=== PATIENT | female | born 1975 | race Caucasian/White ===

== ENCOUNTER 2019-09-21 08:52 | Outpatient (CLI) | payer OTHER | END 2019-09-21 15:00 | disposition home or self-care (01) | LOC: LAB 08:52 | PROVIDERS: ATTEND Physical Medicine & Rehabilitation | DX: Z20.828 Contact with and (suspected) exposure to other viral communicable diseases (principal); R06.02 Shortness of breath; Z03.818 Encounter for observation for suspected exposure to other biological agents ruled out ==

== ENCOUNTER 2019-10-05 11:09 | Outpatient (CLI) | payer OTHER | END 2019-10-05 11:13 | disposition home or self-care (01) | LOC: LAB 11:09 | PROVIDERS: ATTEND General Practice | DX: Z20.828 Contact with and (suspected) exposure to other viral communicable diseases (principal); Z11.59 Encounter for screening for other viral diseases ==